=== PATIENT | male | born 2005 | race Caucasian/White ===

== ENCOUNTER 2024-10-09 23:42 | Emergency (ER) | payer OTHER, SELFPAY ==
--- NOTE | ~2024-10-09 | XR_ITS ---
CLINICAL HISTORY: cough, fever 2 view chest x-ray Comparison: None provided Findings: No consolidation or effusion. Heart size is normal. No acute fracture. IMPRESSION: 1. No acute findings. This document has been electronically signed by: Jona Neri MD, PHD on 10/10/2024 03:10:21
[2024-10-09 23:45] VITALS: BP 136/62; PULSE 97; O2SAT 97
[2024-10-09 23:48] VITALS: BP 113/50; PULSE 91; RESP 16; TEMP 37.7; O2SAT 97; BMI 22.3
[2024-10-09 23:57] VITALS: BP 113/50; PULSE 91; RESP 16; TEMP 37.7; O2SAT 97
--- NOTE | 2024-10-10 00:36 | ED_ITS ---
HPI - General Adult General Chief complaint: General Medical Stated complaint: nausea/vomitting/ cough Time Seen by Provider: 10/10/24 00:07 Source: patient and EMS Mode of arrival: EMS Limitations: no limitations History of Present Illness ED Provider: SUSAN SURESH narrative: 19 yo male healthy no PMH and no recent travel or procedures he comes in with c/o 4 days of not feeling well he has nausea/vomiting he is able to tolerate some water, chills, fevers, sore throat which started 2 days ago. He took some tylenol but otherwise has no medications. He denies any sick contacts. He states he has a dry cough and didn't know what else to do. MD complaint: URI Onset (ago): day(s) (4) Location: mouth Radiation: non-radiation Severity: moderate Quality: aching Pain Consistency: intermittent Relieving factors: none Exacerbating factors: eating and other (swallowing) Associated symptoms: cough, fever/chills, headaches, loss of appetite, malaise and nausea/vomiting Treatments prior to arrival: none Related Data Previous Rx's ?Medication ?Instructions ?Recorded amoxicillin 500 mg capsule 500 mg PO BID 10 days #20 c aps 10/10/24 ibuprofen 600 mg tablet 600 mg PO Q6H PRN pain #30 t abs 10/10/24 ondansetron 4 mg disintegrating 4 mg PO Q8H PRN nausea and 10/10/24 tablet vomiting #20 tabs Allergies Allergy/AdvReac Type Severity Reaction Status Date / Time No Known Drug Allergies Allergy Unknown Verified 10/09/24 23:53 Review of Systems Review of Systems: Constitutional : positive Fever, positive Chills, positive fatigue, positive Malaise ENT/Mouth : positive sore throat, positive runny nose Eyes: No Discharge Cardiovascular : No Chest Pain, No SOB Respiratory : No Cough, No Sputum Gastrointestinal : No Nausea, No Vomiting, No Diarrhea Genitourinary : No Dysuria, No Urinary Frequency Musculoskeletal : positive Myalgia Skin : No rash Neuro : No Headache Yes all other systems are reviewed and are negative [facility] Past Medical History Attestation statement: The following information was validated with the patient. Source: old records reviewed Medical History No pertinent past medical history Social History Social History Smoked in Last 30 Days: No Use of substances other than those prescribed or required for medical reasons: No Advance Directives: No Physical Exam ED Vital Signs: Vital Signs - 24 hr 10/09/24 23:48 10/09/24 23:57 10/10/24 02:57 Temperature 99.9 F 99.9 F 97.4 F Pulse Rate 91 91 64 Respiratory Rate 16 16 16 Blood Pressure 113/50 L 113/50 L 134/64 Pulse Oximetry 97 97 97 Oxygen Delivery Method Room Air Room Air Room Air BMI result Body Mass Index 22.3 Appearance: Alert. Oriented X3. No acute distress. Eyes: Pupils equal, round and reactive to light. ENT: Pharynx bilateral exudates and tonsilar erythema/redness, uvula is midline, he is tolerating saliva and fluids, no trismus Neck: Normal inspection. bilateral anterior cervical lymphadenopathy CVS: Normal heart rate and rhythm. Pulses normal. Respiratory: No respiratory distress. Breath sounds normal. Abdomen: Soft and nontender. Skin: Skin warm and dry. Normal skin color. Extremities: No lower extremity edema. Neuro: Oriented X 3. No motor deficit. No sensory deficit. Medications Administered Discontinued Medications Generic Name Dose Route Start Last Admin Trade Name Freq PRN Reason Stop Dose Admin Amoxicillin 500 mg 10/10/24 01:30 10/10/24 01:55 Amoxicillin 500 Mg Capsule PO 10/10/24 01:31 500 mg ONCE ONE Administration Dexamethasone Sodium Phosphate 8 mg 10/10/24 00:39 10/10/24 01:03 Dexamethasone Sod Phosphate 4 Mg/Ml Vial PO 10/10/24 00:40 8 mg ONCE ONE Administration Lactated Ringer's 1,000 mls @ 999 mls/hr 10/10/24 00:39 10/10/24 02:27 Lr IV 10/10/24 01:39 Infused .Q1H1M ONE Infusion Ketorolac Tromethamine 15 mg 10/10/24 00:39 10/10/24 01:03 Ketorolac Tromethamine 15 Mg/Ml Vial IVPUSH 10/10/24 00:40 15 mg ONCE ONE Administration Medical Decision Making Medical Decision Making MDM Narrative: 19 yo male healthy here with c/o URI symptoms not feeling well on exam he appears to have strep throat - he has no signs of [employer] or retropharyngeal abscess. He is able to swallow. At this time will obtain CXR for pneumonia, strep throat, COVID swab - I anticipate based off history I will start on amoxicillin regardless of strep test given the clinical concern. Differential Diagnosis Differential Diagnoses: The differential diagnosis associated with the presentation includes strep throat, pharyngitis, viral syndrome Admission/Observation Consideration of admission/observation: Escalation of care including admission/observation considered feels much better, tolerating PO stable for DC Lab Data MDM Lab Attestation statement: I reviewed the patient's lab results. Labs: Lab Results 10/10/24 Range/Units 00:44 COVID-19 (ESTEFANY) Negative (Negative) COVID-19 Clin Com See Note S. pyogenes GrpA SIMBA Negative (Negative) Independent Interpretation I performed an independent interpretation of an: Plain X-Ray (normal ) Radiology Impression Discussion of test interpretation with radiology: I have reviewed the radiologist's reading. Radiologist Impression: No consolidation or effusion. Heart size is normal. No acute fracture. IMPRESSION: 1. No acute findings. External Record Review External record reviewed: Outpatient record Prescription Management I considered prescription management with: Pain Medication and Antibiotic Discharge Plan Discharge Clinical Impression: Pharyngitis Qualifiers: Pharyngitis/tonsillitis etiology: unspecified etiology Qualified Code(s): J02.9 - Acute pharyngitis, unspecified Patient Disposition: Home, Self-Care Instructions: Pharyngitis (ED) Additional Instructions: negative for COVID rest and stay hydrated alternate tylenol and motrin finish all antibiotics throw away toothbrush in 24 hours On amoxicillin, softer bowel movements are to be expected. Call your provider if you move your bowels more than 4 times a day, your bowel movements are almost all liquid, or you get a rash.? Prescriptions: New amoxicillin 500 mg capsule 500 mg PO BID 10 Days Qty: 20 0RF ondansetron 4 mg tablet,disintegrating 4 mg PO Q8H PRN (Reason: nausea and vomiting) Qty: 20 0RF ibuprofen 600 mg tablet 600 mg PO Q6H PRN (Reason: pain) Qty: 30 0RF Stand Alone Forms: Work/School Release Print Language: Guamanian
[2024-10-10] MEDS: Lactated Ringers 1,000 ML 999 ML IV (01:04)
[2024-10-10 01:05] LABS: IDNOW Serial# 55D5AD1C; Strep A Nucleic Acid Negative (Negative)
[2024-10-10 01:11] LABS: COVID-19 Test Negative (Negative); IDNOW Serial# 58CA691E
[2024-10-10 02:57] VITALS: BP 134/64; PULSE 64; RESP 16; TEMP 36.3; O2SAT 97
[2024-10-10 03:23] VITALS: BP 134/64; PULSE 64; RESP 16; TEMP 36.3; O2SAT 97
== END 2024-10-10 03:29 | disposition home or self-care (01) ==
PROVIDERS: Emergency Medicine; Emergency Provider Emergency Medicine
DX: J02.9 Acute pharyngitis, unspecified (principal); R11.2 Nausea with vomiting, unspecified; R05.9 Cough, unspecified; R51.9 Headache, unspecified; R50.9 Fever, unspecified; Z11.52 Encounter for screening for COVID-19; Z03.818 Encounter for observation for suspected exposure to other biological agents ruled out
CPT/HCPCS: 71046; 87635; 87651; 96361; 96374; 99284; J1100; J1885; J7120

== ENCOUNTER → 2024-10-10 00:08 | Outpatient (BNV) | payer OTHER, SELFPAY | PROVIDERS: Emergency Provider Emergency Medicine; Visit Provider General Practice | DX: R05.9 Cough, unspecified (principal); R50.9 Fever, unspecified | CPT/HCPCS: 71046 ==